=== PATIENT | female | born 1970 | race Two or more races ===

== ENCOUNTER 2024-01-03 14:15 | Outpatient (OUT) | payer OTHER, SELFPAY ==
[2024-01-03 15:19] LABS: Estimated Average Glucose 103 mg/dL; Glycohemoglobin A1C 5.2 % (4.5-6.2)
[2024-01-03 15:29] LABS: Thyroid Stimulating Hormone 1.754 uIU/mL (0.358-3.740)
[2024-01-04 08:15] LABS: DHEA-Sulfate 96.1 ug/dL (29.4-220.5); Estradiol <5.0 pg/mL (.); Progesterone 0.3 ng/mL (.)
[2024-01-04 11:12] LABS: Insulin 4.2 uIU/mL (2.6-24.9)
[2024-01-06 12:09] LABS: Calcitriol(1,25 di-OH Vit D) 71.7 pg/mL (24.8-81.5)
[2024-01-07 18:08] LABS: Serotonin, Serum 121 ng/mL (31-207)
[2024-01-08 06:09] LABS: Free Testosterone(Direct) 0.3 pg/mL (0.0-4.2); Testosterone 5 ng/dL (4-50)
== END 2024-01-03 14:16 | disposition home or self-care (01) ==
LOC: LAB 14:23
PROVIDERS: PCP Family Medicine; Visit Provider Obstetrics & Gynecology
DX: R23.2 Flushing (principal); Z78.0 Asymptomatic menopausal state; R45.86 Emotional lability; E34.9 Endocrine disorder, unspecified
CPT/HCPCS: 36415; 82627; 82652; 82670; 83036; 83525; 84144; 84260; 84402; 84403; 84443